=== PATIENT | male | born 1945 | race Caucasian/White ===

== ENCOUNTER → 2016-09-07 | Outpatient (CLI) | payer MEDICARE ==
[~2016-09-07] MED LIST: ASPI81 PO; ATOR40TA28 PO; B CO1CAP4 PO; CARV6 PO; DIAZ5 PO; FLUT16H NASAL; FOLI1 PO; FOLI1CAP2 PO; LEVO500 PO; LISI-660 PO; METO25 PO; PANT40TA25 PO; PERCT PO; PHOSLOC PO; SACU1TAB PO
== END | disposition home or self-care (01) ==
LOC: RADPV 12:06
PROVIDERS: ATTEND Legal Medicine
DX: I50.9 Heart failure, unspecified (principal); I51.7 Cardiomegaly; I70.0 Atherosclerosis of aorta; J98.4 Other disorders of lung; J90 Pleural effusion, not elsewhere classified; Z95.0 Presence of cardiac pacemaker
CPT/HCPCS: 71020

== ENCOUNTER 2016-12-06 03:40 | Inpatient (IN) | payer MEDICARE ==
[~2016-12-06] VITALS: Ht 182.9 cm; Wt 77.2 kg
[~2016-12-06 03:40] MED LIST changes: -CARV6 PO; -FOLI1CAP2 PO; -LEVO500 PO; -SACU1TAB PO
[2016-12-06 04:08] LABS: BASOPHILS % (AUTO) 0.7 % (0.0-2.0); EOSINOPHILS % (AUTO) 4.6 % (1.0-6.0); HEMATOCRIT 33.7 % (41-53); HEMOGLOBIN 11.1 g/dL (13.5-17.5); LYMPHOCYTES # (AUTO) 8.2 K/uL (1.0-4.8); LYMPHOCYTES % (AUTO) 49.7 % (22.0-44.0); MEAN CORPUSCULAR HEMOGLOBIN 30.1 pg (26.0-34.0); MEAN CORPUSCULAR VOLUME 91 fL (80-100); NEUTROPHILS # (AUTO) 6.4 K/uL (1.8-7.7); PLATELET COUNT (AUTO) 290 K/uL (150-450); RED CELL DISTRIBUTION WIDTH 15.8 % (11.5-14.5); WHITE BLOOD COUNT (AUTO) 16.4 K/uL (4.5-11.0)
[2016-12-06 04:13] LABS: ANION GAP 14 mmol/L (8-16); CALCIUM, TOTAL 8.7 mg/dL (8.8-10.5); CARBON DIOXIDE 25 mmol/L (22-29); CHLORIDE 101 mmol/L (98-107); CREATININE 7.69 mg/dL (0.60-1.30); GLOMERULAR FILTR. RATE CALC 7 mL/min (>60); POTASSIUM 3.7 mmol/L (3.5-5.1); SODIUM SERUM 140 mmol/L (136-145); UREA NITROGEN, BLOOD 69 mg/dL (7-18)
[2016-12-06 04:15] LABS: PROTHROMBIN TIME 10.4 SEC (9.4-11.6)
[2016-12-06 04:19] LABS: ALANINE AMINOTRANSFERASE 15 U/L (12-78); ALBUMIN 3.8 g/dL (3.4-5.0); ASPARTATE AMINOTRANSFERASE 11 U/L (15-37); BILIRUBIN,TOTAL 0.4 mg/dL (0.1-1.0); CREATINE KINASE, TOTAL 50 U/L (39-308); TOTAL PROTEIN, SERUM 8.3 g/dL (6.4-8.2)
[2016-12-06 04:32] LABS: B-TYPE NATRIURETIC PEPTIDE 2200 pg/mL (0-100)
[2016-12-06] MEDS ORDERED: ONDANSETRON HCL 4 MG/2 ML VIAL IVP PRN ×2 (05:00→10:30)
[2016-12-06] MEDS ORDERED: ACETAMINOPHEN 325 MG TABLET PO PRN ×2 (05:00→11:00)
[2016-12-06] MEDS ORDERED: 0.9% SODIUM CHLORIDE 10 ML SYRINGE IVP PRN (05:00)
[2016-12-06] MEDS ORDERED: CefTRIAXone 1 GM/DEXTROSE 50 ML IV ONE (05:15)
[2016-12-06] MEDS ORDERED: AZITHROMYCIN 500 MG/NS 250 ML IV ONE (05:15)
[2016-12-06 06:53] VITALS: BP 148/80
[2016-12-06] MEDS ORDERED: IPRATROPIUM BROMIDE 0.5 MG/2.5 ML NEB SOLUTION NEB PRN (10:30)
[2016-12-06] MEDS ORDERED: BISACODYL 10 MG RECTAL RECTAL SUPPOSITORY PR PRN (10:30)
[2016-12-06] MEDS ORDERED: *CLINICAL-LEVOFLOXACIN IVPB DOSING CLINICAL ONE ×2 (10:30)
[2016-12-06] MEDS ORDERED: MAGNESIUM HYDROXIDE SUSPENSION 30 ML UDCUP PO PRN (10:30)
[2016-12-06] MEDS ORDERED: ZOLPIDEM TARTRATE 5 MG TABLET PO PRN (10:30)
[2016-12-06] MEDS ORDERED: ALBUTEROL SULFATE 2.5 MG/0.5 ML NEB SOLUTION NEB PRN (10:30)
[2016-12-06] MEDS ORDERED: OxyCODONE HCL/ACETAMINOPHEN 5-325 MG TABLET PO PRN (11:00)
[2016-12-06 11:27] LABS: CREATINE KINASE, TOTAL 52 U/L (39-308)
[2016-12-06 11:49] VITALS: BP 138/75
[2016-12-06] MEDS: CALCIUM ACETATE 667 MG CAPSULE PO SCH ×2 (12:04→19:20)
[2016-12-06 15:15] VITALS: BP 135/72
[2016-12-06] MEDS ORDERED: PHENYLEPHRINE HCL 0.5% 15 ML NASAL SPRAY NASAL PRN (17:15)
[2016-12-06] MEDS: DIAZEPAM 5 MG TABLET PO PRN (17:28)
[2016-12-06 18:53] LABS: CREATINE KINASE, TOTAL 58 U/L (39-308)
[2016-12-06] MEDS: VITAMIN B COMP/VIT C/FOLIC ACID CAPSULE PO SCH (19:20)
[2016-12-06] MEDS ORDERED: SODIUM CHLORIDE 0.9% 250 ML IV ONE (19:31)
[2016-12-06] MEDS: LEVOFLOXACIN 500 MG/D5% WATER 100 ML IV SCH (19:32)
[2016-12-06 20:05] VITALS: BP 138/66
[2016-12-06] MEDS: FLUTICASONE PROPIONATE 50 MCG/SPRAY 16 GM NASAL SPRAY NASAL SCH (20:44)
[2016-12-07] VITALS (7 sets, daily range): BP systolic 114–140; BP diastolic 63–78
[2016-12-07 06:43] LABS: BASOPHILS % (AUTO) 0.7 % (0.0-2.0); EOSINOPHILS % (AUTO) 4.9 % (1.0-6.0); HEMATOCRIT 33.2 % (41-53); HEMOGLOBIN 11.3 g/dL (13.5-17.5); LYMPHOCYTES # (AUTO) 3.1 K/uL (1.0-4.8); LYMPHOCYTES % (AUTO) 30.2 % (22.0-44.0); MEAN CORPUSCULAR HEMOGLOBIN 30.4 pg (26.0-34.0); MEAN CORPUSCULAR VOLUME 90 fL (80-100); MONOCYTES # (AUTO) 0.8 K/uL (0.1-1.0); MONOCYTES % (AUTO) 7.9 % (2.0-9.0); NEUTROPHILS # (AUTO) 5.7 K/uL (1.8-7.7); NEUTROPHILS % (AUTO) 56.3 % (40.0-70.0); PLATELET COUNT (AUTO) 243 K/uL (150-450); RED BLOOD CELL COUNT(AUTO) 3.71 MIL/uL (4.50-5.90); RED CELL DISTRIBUTION WIDTH 15.3 % (11.5-14.5); WHITE BLOOD COUNT (AUTO) 10.2 K/uL (4.5-11.0)
[2016-12-07 06:50] LABS: CHLORIDE 98 mmol/L (98-107); POTASSIUM 4.2 mmol/L (3.5-5.1); SODIUM SERUM 135 mmol/L (136-145)
[2016-12-07 07:14] LABS: PROCALCITONIN (PCT) 0.94 ng/mL (<0.50)
[2016-12-07 07:30] LABS: ANION GAP 8 mmol/L (8-16); CALCIUM, TOTAL 8.9 mg/dL (8.8-10.5); CARBON DIOXIDE 29 mmol/L (22-29); CHOL/HDL RATIO 4.3 (4.2-7.3); CREATINE KINASE, TOTAL 47 U/L (39-308); CREATININE 5.03 mg/dL (0.60-1.30); GLOMERULAR FILTR. RATE CALC 11 mL/min (>60); UREA NITROGEN, BLOOD 37 mg/dL (7-18)
[2016-12-07 07:31] LABS: THYROID STIMULATING HORMONE 1.29 uIU/mL (0.36-3.74)
[2016-12-07 07:47] LABS: HEMOGLOBIN A1C 5.1 % (4.5-6.2)
[2016-12-07] MEDS: FLUTICASONE PROPIONATE 50 MCG/SPRAY 16 GM NASAL SPRAY NASAL SCH ×2 (08:57→21:01)
[2016-12-07] MEDS: VITAMIN B COMP/VIT C/FOLIC ACID CAPSULE PO SCH (08:58)
[2016-12-07] MEDS: CALCIUM ACETATE 667 MG CAPSULE PO SCH ×3 (08:58→18:18)
[2016-12-07] MEDS: PANTOPRAZOLE SODIUM 40 MG DR TABLET PO SCH (08:58)
[2016-12-07] MEDS ORDERED: CARVEDILOL 3.125 MG TABLET PO SCH (09:00)
[2016-12-07] MEDS ORDERED: FLUTICASONE PROPIONATE 50 MCG/SPRAY 16 GM NASAL SPRAY NASAL SCH (09:00)
[2016-12-07] MEDS: CARVEDILOL 6.25 MG TABLET PO SCH ×2 (09:00→21:01)
[2016-12-07] MEDS: SACUBITRIL/VALSARTAN 24-26 MG TABLET PO SCH ×2 (10:03→21:00)
[2016-12-07] MEDS: DIAZEPAM 5 MG TABLET PO PRN (21:01)
[2016-12-08] VITALS (7 sets, daily range): BP systolic 107–171; BP diastolic 53–91
[2016-12-08 06:09] LABS: BASOPHILS % (AUTO) 0.9 % (0.0-2.0); EOSINOPHILS % (AUTO) 5.8 % (1.0-6.0); HEMATOCRIT 30.8 % (41-53); HEMOGLOBIN 10.6 g/dL (13.5-17.5); LYMPHOCYTES # (AUTO) 2.8 K/uL (1.0-4.8); LYMPHOCYTES % (AUTO) 36.8 % (22.0-44.0); MEAN CORPUSCULAR HGB CONC 34.4 G/dL (31.0-37.0); MEAN CORPUSCULAR VOLUME 90 fL (80-100); MONOCYTES # (AUTO) 0.7 K/uL (0.1-1.0); MONOCYTES % (AUTO) 8.7 % (2.0-9.0); NEUTROPHILS # (AUTO) 3.7 K/uL (1.8-7.7); NEUTROPHILS % (AUTO) 47.8 % (40.0-70.0); PLATELET COUNT (AUTO) 229 K/uL (150-450); RED BLOOD CELL COUNT(AUTO) 3.42 MIL/uL (4.50-5.90); RED CELL DISTRIBUTION WIDTH 15.1 % (11.5-14.5); WHITE BLOOD COUNT (AUTO) 7.7 K/uL (4.5-11.0)
[2016-12-08 07:04] LABS: CALCIUM, TOTAL 8.8 mg/dL (8.8-10.5); CREATININE 6.3 mg/dL (0.60-1.30); POTASSIUM 3.9 mmol/L (3.5-5.1)
[2016-12-08] MEDS: CALCIUM ACETATE 667 MG CAPSULE PO SCH ×3 (08:00→18:47)
[2016-12-08] MEDS: FLUTICASONE PROPIONATE 50 MCG/SPRAY 16 GM NASAL SPRAY NASAL SCH ×2 (08:03→20:22)
[2016-12-08] MEDS ORDERED: ALBUMIN HUMAN 25%-12.5GM/50ML IV BOTTLE IV PRN (10:15)
[2016-12-08] MEDS ORDERED: MANNITOL 25%-12.5 GM/50 ML VIAL IVP PRN (10:15)
[2016-12-08] MEDS: VITAMIN B COMP/VIT C/FOLIC ACID CAPSULE PO SCH (11:14)
[2016-12-08] MEDS: DIAZEPAM 5 MG TABLET PO PRN (11:14)
[2016-12-08] MEDS: PANTOPRAZOLE SODIUM 40 MG DR TABLET PO SCH (11:14)
[2016-12-08] MEDS: SACUBITRIL/VALSARTAN 24-26 MG TABLET PO SCH ×2 (12:29→22:11)
[2016-12-08] MEDS: CARVEDILOL 6.25 MG TABLET PO SCH ×2 (12:29→22:11)
[2016-12-08] MEDS: LEVOFLOXACIN 500 MG/D5% WATER 100 ML IV SCH (20:13)
[2016-12-08] MEDS ORDERED: SENNA 187 MG TABLET PO PRN (21:45)
[2016-12-09 04:57] VITALS: BP 119/68
[2016-12-09 05:57] LABS: BASOPHILS % (AUTO) 0.8 % (0.0-2.0); MONOCYTES # (AUTO) 0.7 K/uL (0.1-1.0)
[2016-12-09 06:02] LABS: EOSINOPHILS % (AUTO) 5.6 % (1.0-6.0); HEMATOCRIT 34.7 % (41-53); HEMOGLOBIN 11.6 g/dL (13.5-17.5); MEAN CORPUSCULAR HEMOGLOBIN 30.5 pg (26.0-34.0); MEAN CORPUSCULAR HGB CONC 33.5 G/dL (31.0-37.0); MEAN CORPUSCULAR VOLUME 91 fL (80-100); MONOCYTES % (AUTO) 8.2 % (2.0-9.0); NEUTROPHILS # (AUTO) 4.1 K/uL (1.8-7.7); NEUTROPHILS % (AUTO) 49.4 % (40.0-70.0); PLATELET COUNT (AUTO) 243 K/uL (150-450); RED BLOOD CELL COUNT(AUTO) 3.81 MIL/uL (4.50-5.90); RED CELL DISTRIBUTION WIDTH 15.2 % (11.5-14.5); WHITE BLOOD COUNT (AUTO) 8.3 K/uL (4.5-11.0)
[2016-12-09 07:25] VITALS: BP 121/64
[2016-12-09 07:32] LABS: CREATININE 5.53 mg/dL (0.60-1.30); POTASSIUM 3.9 mmol/L (3.5-5.1)
[2016-12-09] MEDS: CALCIUM ACETATE 667 MG CAPSULE PO SCH (07:57)
[2016-12-09] MEDS: FLUTICASONE PROPIONATE 50 MCG/SPRAY 16 GM NASAL SPRAY NASAL SCH (07:57)
[2016-12-09] MEDS: PANTOPRAZOLE SODIUM 40 MG DR TABLET PO SCH (07:57)
[2016-12-09] MEDS: CARVEDILOL 6.25 MG TABLET PO SCH (07:57)
[2016-12-09] MEDS: SACUBITRIL/VALSARTAN 24-26 MG TABLET PO SCH (07:58)
[2016-12-09] MEDS: VITAMIN B COMP/VIT C/FOLIC ACID CAPSULE PO SCH (07:58)
[2016-12-09] MEDS ORDERED: CARV6 PO (10:40)
[2016-12-09] MEDS ORDERED: LEVO500 PO (10:56)
[2016-12-09] MEDS ORDERED: SACU1TAB PO (10:58)
[2016-12-09] MEDS ORDERED: FOLI1CAP2 PO (10:59)
[2016-12-09 11:26] VITALS: BP 120/64
[2016-12-10] MEDS ORDERED: EPOETIN ALFA 10,000 UNITS/ML 2 ML VIAL SQ SCH (09:00)
== END 2016-12-09 11:45 | disposition home health service (06) | DRG 291 ==
LOC: EMS 03:42 → 5S 05:21
PROVIDERS: ADMIT Internal Medicine Geriatric Medicine; ATTEND Internal Medicine Geriatric Medicine
PROC: 5A09357 Assistance with Respiratory Ventilation, Less than 24 Consecutive Hours, Continuous Positive Airway Pressure (ICD-10-PCS; principal; 2016-12-06)
PROC: 5A1D60Z (ICD-10-PCS; 2016-12-06)
DX: I13.2 Hypertensive heart and chronic kidney disease with heart failure and with stage 5 chronic kidney disease, or end stage renal disease (principal); J96.01 Acute respiratory failure with hypoxia; N18.6 End stage renal disease; I50.23 Acute on chronic systolic (congestive) heart failure; J18.9 Pneumonia, unspecified organism; J44.1 Chronic obstructive pulmonary disease with (acute) exacerbation; J44.0 Chronic obstructive pulmonary disease with (acute) lower respiratory infection; E87.1 Hypo-osmolality and hyponatremia; I42.9 Cardiomyopathy, unspecified; D64.9 Anemia, unspecified; E11.22 Type 2 diabetes mellitus with diabetic chronic kidney disease; E78.5 Hyperlipidemia, unspecified; M10.9 Gout, unspecified; I25.10 Atherosclerotic heart disease of native coronary artery without angina pectoris; F12.90 Cannabis use, unspecified, uncomplicated; F41.9 Anxiety disorder, unspecified; E55.9 Vitamin D deficiency, unspecified; N19 Unspecified kidney failure; F17.200 Nicotine dependence, unspecified, uncomplicated; D72.829 Elevated white blood cell count, unspecified; J40 Bronchitis, not specified as acute or chronic; K80.20 Calculus of gallbladder without cholecystitis without obstruction; Z79.2 Long term (current) use of antibiotics; Z88.2 Allergy status to sulfonamides; Z99.2 Dependence on renal dialysis; Z95.1 Presence of aortocoronary bypass graft; Z95.0 Presence of cardiac pacemaker; Z88.8 Allergy status to other drugs, medicaments and biological substances; I25.2 Old myocardial infarction
CPT/HCPCS: 71250; 82306; 82607; 82746; 83036; 83735; 83970; 84100; 84145; 84439; 84443; 87040; 87070; 87081; 87147; 87205; 87340; 93005; 93306; 94660; 96365; 96375; 99291; J0456; J0696; J1956; J7050

== ENCOUNTER → 2017-03-08 | Outpatient (CLI) | payer MEDICARE ==
[~2017-03-08] MED LIST changes: -ASPI81 PO; -ATOR40TA28 PO; -B CO1CAP4 PO; +CARV6 PO; -DIAZ5 PO; -FOLI1 PO; +FOLI1CAP2 PO; +LEVO500 PO; -LISI-660 PO; -METO25 PO; -PERCT PO; +SACU1TAB PO
== END | disposition home or self-care (01) ==
LOC: RADMN 11:21
PROVIDERS: ATTEND Legal Medicine
DX: G31.9 Degenerative disease of nervous system, unspecified (principal); I67.2 Cerebral atherosclerosis; R90.82 White matter disease, unspecified; Z86.73 Personal history of transient ischemic attack (TIA), and cerebral infarction without residual deficits
CPT/HCPCS: 70450

== ENCOUNTER → 2017-06-02 | Outpatient (CLI) | payer MEDICARE ==
[~2017-06-02] VITALS: Ht 182.9 cm; Wt 73.5 kg
[~2017-06-02] MED LIST changes: +DIAZ5 PO; +LISI10TA7 PO; +PERCT PO
[2017-06-02 11:55] VITALS: BP 111/55
== END | disposition home or self-care (01) ==
LOC: SRCNTR 11:48
PROVIDERS: ATTEND Internal Medicine Critical Care Medicine
DX: J90 Pleural effusion, not elsewhere classified (principal); I12.9 Hypertensive chronic kidney disease with stage 1 through stage 4 chronic kidney disease, or unspecified chronic kidney disease; N18.6 End stage renal disease; R09.82 Postnasal drip; I25.10 Atherosclerotic heart disease of native coronary artery without angina pectoris; Z95.1 Presence of aortocoronary bypass graft
CPT/HCPCS: G0463

== ENCOUNTER → 2018-05-25 | Outpatient (CLI) | payer MEDICARE ==
[~2018-05-25] VITALS: Ht 182.9 cm; Wt 80.5 kg
[~2018-05-25] MED LIST changes: -FOLI1CAP2 PO; -LEVO500 PO; -PANT40TA25 PO; -SACU1TAB PO; +TRAM50TA4 PO; +TRAZ-219 PO
[2018-05-25 15:02] VITALS: BP 116/52
== END | disposition home or self-care (01) ==
LOC: SRCNTR 14:34
PROVIDERS: ATTEND Internal Medicine Critical Care Medicine
DX: I25.10 Atherosclerotic heart disease of native coronary artery without angina pectoris (principal); I12.0 Hypertensive chronic kidney disease with stage 5 chronic kidney disease or end stage renal disease; N18.6 End stage renal disease; F41.9 Anxiety disorder, unspecified; M10.9 Gout, unspecified; E78.5 Hyperlipidemia, unspecified; Z95.1 Presence of aortocoronary bypass graft; Z95.0 Presence of cardiac pacemaker
CPT/HCPCS: G0463

== ENCOUNTER → 2019-03-15 | Outpatient (CLI) | payer MEDICARE ==
[~2019-03-15] MED LIST changes: -DIAZ5 PO; -LISI10TA7 PO; -TRAZ-219 PO; +TRAZ-252 PO
== END | disposition home or self-care (01) ==
LOC: RADMN 12:28
PROVIDERS: ATTEND Legal Medicine
DX: I67.82 Cerebral ischemia (principal); I25.10 Atherosclerotic heart disease of native coronary artery without angina pectoris; F03.90 Unspecified dementia, unspecified severity, without behavioral disturbance, psychotic disturbance, mood disturbance, and anxiety
CPT/HCPCS: 70450

== ENCOUNTER → 2019-03-15 | Outpatient (CLI) | payer MEDICARE | END | disposition home or self-care (01) | LOC: RADMN 11:27 | PROVIDERS: ATTEND Internal Medicine Cardiovascular Disease | DX: I08.1 Rheumatic disorders of both mitral and tricuspid valves (principal); I50.9 Heart failure, unspecified | CPT/HCPCS: 93306 ==